=== PATIENT | female | born 1965 | race Caucasian/White ===

== ENCOUNTER 2016-12-23 09:30 | Inpatient (IN) | payer OTHER ==
[~2016-12-23] VITALS: Ht 162.6 cm; Wt 132.2 kg
[2016-12-23 10:46] LABS: HEMOGLOBIN 15.7 gm/dl (12.3-15.3); RED BLOOD COUNT 4.92 M/UL (4.00-5.10); WHITE BLOOD COUNT 13.6 K/UL (4.5-11.0)
[2016-12-23 11:05] LABS: BUN/CREATININE RATIO 26 (0-10)
[2016-12-23] MEDS ORDERED: MIRTAZAPINE15 MG PO (17:22)
[2016-12-23] MEDS ORDERED: ZANTAC 150 MG150 MG PO (17:25)
[2016-12-23] MEDS ORDERED: FLEXERIL 10 MG10 MG PO (17:25)
[2016-12-23] MEDS ORDERED: METOPROLOL TART50 MG PO (17:26)
[2016-12-23] MEDS ORDERED: HYDROXYZINE PAM25 MG PO (17:32)
[2016-12-23] MEDS ORDERED: VITAMIN D250000 UNIT PO (17:34)
[2016-12-23] MEDS ORDERED: RALOXIFENE HCL60 MG PO (17:35)
[2016-12-23] MEDS ORDERED: ASPIR-LOW81 MG PO (17:36)
[2016-12-23] MEDS ORDERED: METFORMIN HCL500 MG PO (17:36)
[2016-12-23] MEDS ORDERED: FENOFIBRATE134 MG PO (17:37)
[2016-12-23] MEDS ORDERED: NEURONTIN 300300 MG PO (17:38)
[2016-12-23] MEDS ORDERED: AUGMENTIN TAB875 MG PO (17:38)
[2016-12-23] MEDS ORDERED: COZAAR50 MG PO (17:39)
[2016-12-23] MEDS ORDERED: COLACE 100MG C100 MG PO (17:40)
[2016-12-23] MEDS ORDERED: HYDROCHLOROTHIA25 MG PO (17:40)
[2016-12-23 19:08] LABS: HEMOGLOBIN 15.2 gm/dl (12.3-15.3); RED BLOOD COUNT 4.73 M/UL (4.00-5.10)
[2016-12-23 19:13] LABS: WHITE BLOOD COUNT 19.6 K/UL (4.5-11.0)
[2016-12-24 06:36] LABS: HEMOGLOBIN 14.3 gm/dl (12.3-15.3); RED BLOOD COUNT 4.5 M/UL (4.00-5.10)
[2016-12-24 06:43] LABS: WHITE BLOOD COUNT 14.5 K/UL (4.5-11.0)
[2016-12-24 07:01] LABS: BUN/CREATININE RATIO 23 (0-10)
[2016-12-26 03:56] LABS: HEMOGLOBIN 12.6 gm/dl (12.3-15.3)
[2016-12-26 04:04] LABS: RED BLOOD COUNT 3.98 M/UL (4.00-5.10); WHITE BLOOD COUNT 9.7 K/UL (4.5-11.0)
[2016-12-28] MEDS ORDERED: XARELTO15 MG PO (14:44)
[2016-12-28] MEDS ORDERED: XARELTO20 MG PO (14:57)
[2016-12-28] MEDS ORDERED: PROTONIX 40 MG40 M1 PO (15:05)
== END 2016-12-28 17:35 | disposition home or self-care (01) | DRG 175 ==
LOC: ER1 09:30 → CCU 14:15 → M/S 14:15 → ZEROF 14:15 → CCU 17:28 → M/S 12-27 06:15
PROVIDERS: Emergency Medicine; Internal Medicine Pulmonary Disease; ADMIT Internal Medicine
DX: I26.09 Other pulmonary embolism with acute cor pulmonale (principal); J96.01 Acute respiratory failure with hypoxia; J96.02 Acute respiratory failure with hypercapnia; I82.431 Acute embolism and thrombosis of right popliteal vein; Z68.43 Body mass index [BMI] 50.0-59.9, adult; E78.5 Hyperlipidemia, unspecified; K21.9 Gastro-esophageal reflux disease without esophagitis; E11.9 Type 2 diabetes mellitus without complications; R59.0 Localized enlarged lymph nodes; G47.33 Obstructive sleep apnea (adult) (pediatric); R00.0 Tachycardia, unspecified; Z79.899 Other long term (current) drug therapy; Z79.82 Long term (current) use of aspirin; Z79.84 Long term (current) use of oral hypoglycemic drugs; Z91.09 Other allergy status, other than to drugs and biological substances; G47.00 Insomnia, unspecified; I95.9 Hypotension, unspecified; I10 Essential (primary) hypertension; Z79.01 Long term (current) use of anticoagulants; E66.01 Morbid (severe) obesity due to excess calories; K76.0 Fatty (change of) liver, not elsewhere classified
CPT/HCPCS: ECHO; 36415; 36600; 70450; 71010; 80053; 80061; 81001; 82272; 82550; 82553; 82607; 82746; 82803; 82962; 83605; 83735; 83874; 83880; 84484; 85025; 85027; 85379; 85610; 85730; 87040; 93005; 93306; 93970; 94640; 94660; 94664; 96365; 96366; 99291; C9113; J1644; J2543; J2930; J2997; J7050; Q0177; Q9963

== ENCOUNTER → 2021-02-13 | Outpatient (CLI) | payer OTHER ==
[~2021-02-13] MED LIST: ASPIR-LOW81 MG PO; AUGMENTIN TAB875 MG PO; COLACE 100MG C100 MG PO; COZAAR50 MG PO; FENOFIBRATE134 MG PO; FLEXERIL 10 MG10 MG PO; HYDROCHLOROTHIA25 MG PO; HYDROXYZINE PAM25 MG PO; METFORMIN HCL500 MG PO; METOPROLOL TART50 MG PO; MIRTAZAPINE15 MG PO; NEURONTIN 300300 MG PO; PROTONIX 40 MG40 M1 PO; RALOXIFENE HCL60 MG PO; VITAMIN D250000 UNIT PO; XARELTO15 MG PO; XARELTO20 MG PO; ZANTAC 150 MG150 MG PO
== END ==
LOC: KOH-I 09:56
DX: R06.00 Dyspnea, unspecified (principal); R09.89 Other specified symptoms and signs involving the circulatory and respiratory systems
CPT/HCPCS: 71046

== ENCOUNTER → 2021-06-08 | Outpatient (CLI) | payer OTHER | LOC: HEART 5 09:21 | DX: R06.02 Shortness of breath (principal); R06.00 Dyspnea, unspecified; R94.2 Abnormal results of pulmonary function studies | CPT/HCPCS: 94060; 94729; 95012 ==

== ENCOUNTER 2021-09-04 13:07 | Emergency (ER) | payer OTHER ==
[2021-09-04] MEDS ORDERED: OMNICEF 300 MG300 MG PO (14:52)
[2021-09-04] MEDS ORDERED: ZOFRAN4 MG PO (14:52)
== END 2021-09-04 15:45 | disposition home or self-care (01) ==
LOC: ER1 13:07
DX: N39.0 Urinary tract infection, site not specified (principal); E78.5 Hyperlipidemia, unspecified; I10 Essential (primary) hypertension; Z88.8 Allergy status to other drugs, medicaments and biological substances
CPT/HCPCS: 81001; 87077; 87086; 87186; 99283